=== PATIENT | male | born 1980 | race African-American/Black ===

== ENCOUNTER 2021-03-17 14:02 | Emergency (ER) | payer OTHER ==
[~2021-03-17] VITALS: Ht 182.9 cm; Wt 81.7 kg
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
[2021-03-17 15:01] LABS: CALCIUM 9.7 mg/dL (8.5-10.1); CREATININE 0.9 mg/dL (0.7-1.3); POTASSIUM 3.3 mmol/L (3.5-5.1)
[2021-03-17 16:00] LABS: AMP/METHAMP Negative (Negative); BARBITURATES Negative (Negative); BENZODIAZEPINES Negative (Negative); COCAINE Negative (Negative); METHADONE Negative (Negative); OPIATES Negative (Negative); PCP Negative (Negative)
[2021-03-17 20:19] LABS: ABSOLUTE NEUTROPHILS 1.4 thou/uL (1.4-8.2); BASOPHILS 0.4 % (0.0-2.0); EOSINOPHILS 2.5 % (0.0-3.0); HEMATOCRIT 39.9 % (42.0-52.0); HEMOGLOBIN 13.4 gm/dL (14.0-18.0); LYMPHOCYTES 50.9 % (24.0-44.0); MCH 29.5 pg (26.0-34.0); MCHC 33.6 g/dL (28.0-37.0); MCV 87.7 fL (80.0-100.0); MONOCYTES 16.1 % (1.0-8.0); PLATELET COUNT 176 thou/uL (150-400); POLYS 30.1 % (36.0-66.0); RBC 4.55 mil/uL (4.50-6.00); RDW 13.8 % (10.5-14.5); WBC 4.5 thou/uL (4.0-11.0)
[2021-03-18 13:56] VITALS: BP 118/81
== END 2021-03-18 13:56 | disposition home or self-care (01) ==
LOC: ER 14:02
PROVIDERS: Emergency Medicine
DX: R45.851 Suicidal ideations (principal); Z20.822 Contact with and (suspected) exposure to COVID-19